=== PATIENT | male | born 1980 | race Caucasian/White ===

== ENCOUNTER 2018-10-06 14:33 | Observation (INO) | payer MEDICAID, SELFPAY ==
[2018-10-06] VITALS (7 sets, daily range): BP systolic 139–153; BP diastolic 71–93; PULSE 100–111; RESP 16–20; TEMP 36.2–36.6; O2SAT 97–98; BMI 29.5; BMI 30.6
--- NOTE | 2018-10-06 15:12 | CT_ITS ---
STUDY: CT BRAIN WITHOUT CONTRAST REASON FOR EXAM: Male, 38 years old. EtOH seizure RADIATION DOSAGE (If Supplied By Facility): CTDIvol = ( 44.12 ) mGy, DLP = ( 812.98 ) mGycm TECHNIQUE: Transaxial CT imaging of the brain was performed without administration of intravenous contrast material. Individualized dose optimization techniques were used for this CT. COMPARISON: No relevant priors. FINDINGS: Normal soft tissue structures. Normal calvarium. There is mild cerebral atrophy with widening of the extra-axial spaces and ventricular dilatation. Normal white matter tracts of the cerebral hemispheres. Normal basal ganglia and thalami. Normal brainstem. Normal cerebellum. There is no intracranial hemorrhage. There are no findings of an acute ischemic infarction. Normal visualized paranasal sinuses. CT/Brain/Head without Contrast IMPRESSION: Mild atrophy, greater than expected for age, no evidence of acute hemorrhage infarct or edema. Electronically Signed: Carolina Murry MD at 16:30 EDT Tel , Service support ,
--- NOTE | 2018-10-06 15:13 | ED.VISSUMM ---
- ER Visit Summary Date of Service: 10/06/18 Chief Complaint: Alcoholism and requesting detox History of Present Illness: The patient is a 38 M hx of alcohol abuse. Patient presents today requesting detox. States is never been through detox before. Typically drinks 6-12 beers a day. His last drink was around 10 PM last night. Mom also states that reportedly recently he has been having seizures when he tries to stop drinking. He also had recent head trauma while intoxicated he and had a head injury against the ground. He was never evaluated for this in the emergency department. He was reportedly seen by an urgent care. Physical Examination: Vital signs are stable afebrile. HEENT exam pupils are reactive light. He is an old healing laceration to his right forehead. There are no hematomas. Nontender. C-spine nontender. Trachea midline. He has normal flexion-extension of his neck. Lungs clear to auscultation bilaterally. Heart regular rhythm rate about 105 no murmur chest wall nontender. Abdomen soft nontender. Pelvic girdle intact. Patient is moving all 4 extremities. He has normal quality control assessor strength. Normal dorsi plantar flexion. Neurologically is awake and alert with no focal motor deficits. Back exam is nontender. Skin is unremarkable. Test Results: CBC shows no acute abnormality with a white count of 7. Hemoglobin 16. BMP except a creatinine of 2.18 with no labs available for comparison. I discussed this with the patient. CT of the brain without contrast shows no acute abnormalities read by myself. Awaiting formal radiology interpretation. Emergency Department Course and Treatment: [facility] is coming down to evaluate the patient for possible inpatient detox. Treatment Plan: [facility] evaluated patient and they are comfortable with admission. I spoke to the hospitalist Dr. Tadeo Francois. He is in the ER evaluating the patient for admission. Disposition: admit Impression: History of alcoholism Requesting inpatient detox Recent head injury This note was generated with [employer] dictation software. It may contain incorrect words, spelling, and punctuation that were not noted in review of the chart prior to signing
--- NOTE | 2018-10-06 15:16 | ED.DCSUM_ITS ---
- ER Visit Summary Date of Service: 10/06/18 Chief Complaint: Alcoholism and requesting detox History of Present Illness: The patient is a 38 M hx of alcohol abuse. Patient presents today requesting detox. States is never been through detox before. Typically drinks 6-12 beers a day. His last drink was around 10 PM last night. Mom also states that reportedly recently he has been having seizures when he tries to stop drinking. He also had recent head trauma while intoxicated he and had a head injury against the ground. He was never evaluated for this in the emergency department. He was reportedly seen by an urgent care. Physical Examination: Vital signs are stable afebrile. HEENT exam pupils are reactive light. He is an old healing laceration to his right forehead. There are no hematomas. Nontender. C-spine nontender. Trachea midline. He has normal flexion-extension of his neck. Lungs clear to auscultation bilaterally. Heart regular rhythm rate about 105 no murmur chest wall nontender. Abdomen soft nontender. Pelvic girdle intact. Patient is moving all 4 extremities. He has normal spring repairer helper hand strength. Normal dorsi plantar flexion. Neurologically is awake and alert with no focal motor deficits. Back exam is nontender. Skin is unremarkable. Test Results: CBC shows no acute abnormality with a white count of 7. Hemoglobin 16. BMP except a creatinine of 2.18 with no labs available for comparison. I discussed this with the patient. CT of the brain without contrast shows no acute abnormalities read by myself. Awaiting formal radiology interpretation. Emergency Department Course and Treatment: [facility] is coming down to evaluate the patient for possible inpatient detox. Treatment Plan: [facility] evaluated patient and they are comfortable with admission. I spoke to the hospitalist Dr. Tadeo Francois. He is in the ER evaluating the patient for admission. Disposition: admit Impression: History of alcoholism Requesting inpatient detox Recent head injury This note was generated with [employer] dictation software. It may contain incorrect words, spelling, and punctuation that were not noted in review of the chart prior to signing
[2018-10-06 15:38] LABS: Absolute Lymphocyte Count 1.45 X10^3/ul (0.83-4.51); Absolute Neutrophil Count 5.6 X10^3/uL (2.0-7.7); Basophil# 0.05 X10^3/uL; Basophil% 0.6 % (0-1); Eosinophil# 0.01 X10^3/uL; Eosinophils% 0.1 % (0-5); Hematocrit 50.4 % (40-54); Hemoglobin 16.6 g/dl (13.0-16.5); Lymphocyte # 1.45 X10^3/ul (4.0); Lymphocyte % 18.3 % (19-41); Mean Corp Hgb Conc 32.9 g/gl (32-36); Mean Corpuscular Hgb 33.4 pg (27.0-32.0); Mean Corpuscular Volume 101.4 fL (80-94); Mean Platelet Vol. 10.7 fl (6.2-12.0); Monocyte# 0.83 X10^3/uL; Monocyte% 10.5 % (0-10); Neutrophil # 5.57 X10^3/uL (2.7-7.7); Neutrophil % 70.4 % (47-70); Platelet Count 170 K/mm3 (150-450); RBC Distribution Width CV 14.2 % (11.6-14.6); RBC Distribution Width SD 52.3 fl (35.1-43.9); Red Blood Count 4.97 M/mm3 (4.6-6.2); White Blood Count 7.9 K/mm3 (4.4-11.0)
[2018-10-06 15:49] LABS: POSITIVE COUNT NO; POSITIVE DIFFERENTIAL NO; POSITIVE MORPHOLOGY NO
[2018-10-06 15:54] LABS: Anion Gap 7 (5-15); BUN 13 mg/dL (7-18); Calcium,Total 9.7 mg/dL (8.5-10.1); Chloride 106 mmol/L (98-107); Creatinine, Serum 2.18 mg/dL (0.70-1.30); EST Glomerular Filtration Rate 36 mL/min (>60); Est Glom Filt Rate - Afr Amer 44 mL/min (>60); Estimated Creatinine Clearance 46.39 ml/min; Glucose 151 mg/dL (74-106); Sodium Level 138 mmol/L (136-145)
--- NOTE | 2018-10-06 16:11 | NURSING ---
FUENTES, [facility], WAS IN ROOM
--- NOTE | 2018-10-06 16:32 | NURSING ---
MED SURG JACKIE ALCOHOLISM, WITHDRAWAL REQUESTING DETOX
--- NOTE | 2018-10-06 16:57 | PCM.HP.STD ---
Problem List (1) Alcohol withdrawal Status: Acute Qualifiers: Complication of substance-induced condition: uncomplicated Qualified Code(s): F10.230 - Alcohol dependence with withdrawal, uncomplicated History of Present Illness Date of Admission: 10/06/18 Chief Complaint: tremors. nausea The patient is a 38 year old M who drinks 6-10 beers per day for the past 19 years. Last drink was around 10 PM last night. Since then, he has been having tremors, diaphoresis, nausea. Requesting help with his alcoholism. Patient expressing desire to quit to be with his family. Patient had an intake CIWA 4 of 20. I calculated 15. Patient will be admitted for medical stabilization protocol with lorazepam. [] Past Medical History Allergies No Known Allergies Allergy (Verified 10/06/18 14:39) Home Medications: Ambulatory Orders Medication Instructions Recorded NK 10/06/18 Smoking Status: Heavy Smoker (>10/day) Tobacco Use: Cigarettes Alcohol: Heavy Drugs: None - *Family History Paternal Family History: Family History (Last Updated 10/06/18 @ 16:59 by Tadeo Francois DO) Other Alcoholism History Items: - Review of Systems Constitutional: Reports: Chills. Denies: Anorexia, Fever, Night Sweats, Malaise, Weakness Eyes: Denies: Blurred vision, Double vision HEENT: Denies: Head Aches, Sinus Congestion, Sinus Drainage Cardiovascular: Denies: Chest Pain, Palpitations Respiratory: Denies: Cough, Shortness of breath at rest, Sputum production Gastrointestinal: Reports: Nausea. Denies: Vomiting Genitourinary: Denies: Dysuria Musculoskeletal: Denies: Joint Pain, Joint Tenderness Skin: Denies: Rash, Wounds Neurological: Reports: - - Paresthesias in his feet. Denies: Blurred vision, Double vision Psychiatric: Reports: Anxiety. Denies: Homicidal Ideations, Suicidal Ideations Endocrine: Denies: Change in Body Habitus, Heat/ Cold Intolerance Hematologic/ Lymphatic: Denies: Easy Bruising, Easy Bleeding, Hx of blood clot Comment: A 10 point review of systems were negative except as mentioned in the history of present illness and the other review of systems. VTE Information - Inpt Only VTE Present on Admission: No VTE Mechan Device Prophylaxis: None VTE Pharm Prophylaxis ordered?: No Patient Problems: Active and Suspected Problems Alcohol withdrawal (Acute) - Physical Exam General: Alert, Cooperative, No apparent distress, Well developed, Well nourished, - - Slightly diaphoretic. Slight tremulousness. HEENT: Atraumatic, PERRLA, EOMI, Normocephalic, - - No scleral icterus Oral: Moist Mucosa, No Gingival or Mucosal Lesions/ Ulcerations Neck: No Nodes, Thyroid Normal Size and Texture Lungs: Clear to auscultation, Normal air movement, No rhonchi, No wheeze Cardiovascular: Regular rate, Regular Rhythm, Normal S1, Normal S2, No murmurs Abdomen: Bowel Sounds Present, Soft, Non Tender, Non-Distended, No Hepato-splenomegaly Extremities: No edema, No Calf Tenderness Skin: No rashes, No breakdown Musculoskeletal: No Tenderness to Palpation of Joints or Extremities, No Muscle Wasting Neurological: Neuro grossly intact, Muscle tone normal Psych/Mental Status: Appropriate, Anxious, - - Some delayed responses to questions. Vital Signs Temp Pulse Resp BP Pulse Ox 36.5 C L 105 H 16 139/78 H 98 10/06/18 14:34 10/06/18 14:44 10/06/18 14:44 10/06/18 14:44 10/06/18 14:44 Oxygen Delivery Method Room Air Weight: 90.718 kg Body Mass Index (BMI) 29.5 Laboratory Tests Past 24 Hrs 10/06/18 10/06/18 15:28 15:28 WBC 7.9 RBC 4.97 Hgb 16.6 H Hct 50.4 MCV 101.4 H MCH 33.4 H MCHC 32.9 RDW 14.2 RDW Differential 52.3 H Plt Count 170 MPV 10.7 Immature Gran % (Auto) 0.100 Neut % (Auto) 70.4 H Lymph % (Auto) 18.3 L [place] % (Auto) 10.5 H Eos % (Auto) 0.1 Baso % (Auto) 0.6 Absolute Neuts (auto) 5.6 Absolute Lymphs (auto) 1.45 Total Counted Not Reportable Sodium 138 Potassium 4.0 Chloride 106 Carbon Dioxide 25.0 Anion Gap 7 BUN 13 Creatinine 2.18 H Estim Creat Clear Calc 46.39 Est GFR (MDRD) Af Amer 44 L Est GFR (MDRD) Non-Af 36 L BUN/Creatinine Ratio 6.0 L Glucose 151 H Calcium 9.7 Assessment/Plan All Active Problems Alcohol withdrawal (Acute) 1. Acute alcohol withdrawal Calculated CIWA by myself of 15. Patient will be initiated on lorazepam taper. Patient also have a medication to help with other somatic complaints. Patient states that this is his first time quitting alcohol. I did implore the patient that this is a lifelong mcgill and purpose of this hospitalization was get over the acute alcohol withdrawal and then afterwards to be initiated in program with [facility] as outpatient. Patient states that he has seizures but patient seems like more reflecting his tremulousness from the rather than actual seizures. Verified that patient is now awake incontinent of urine which he said he is not. Therefore I do not feel the patient has had alcohol withdrawal seizures. 2. DVT prophylaxis: Patient is low risk. DVT prophylaxis not indicated. Code Visit Inpatient E&M: 35899 Init Hosp L3
--- NOTE | 2018-10-06 17:03 | HP.PCM_ITS ---
Problem List (1) Alcohol withdrawal Status: Acute Qualifiers: Complication of substance-induced condition: uncomplicated Qualified Code(s): F10.230 - Alcohol dependence with withdrawal, uncomplicated History of Present Illness Date of Admission: 10/06/18 Chief Complaint: tremors. nausea The patient is a 38 year old M who drinks 6-10 beers per day for the past 19 years. Last drink was around 10 PM last night. Since then, he has been having tremors, diaphoresis, nausea. Requesting help with his alcoholism. Patient expressing desire to quit to be with his family. Patient had an intake CIWA 4 of 20. I calculated 15. Patient will be admitted for medical stabilization protocol with lorazepam. [] Past Medical History Allergies No Known Allergies Allergy (Verified 10/06/18 14:39) Home Medications: Ambulatory Orders Medication Instructions Recorded NK 10/06/18 Smoking Status: Heavy Smoker (>10/day) Tobacco Use: Cigarettes Alcohol: Heavy Drugs: None - *Family History Paternal Family History: Family History (Last Updated 10/06/18 @ 16:59 by Tadeo Francois DO) Other Alcoholism History Items: - Review of Systems Constitutional: Reports: Chills. Denies: Anorexia, Fever, Night Sweats, Malaise, Weakness Eyes: Denies: Blurred vision, Double vision HEENT: Denies: Head Aches, Sinus Congestion, Sinus Drainage Cardiovascular: Denies: Chest Pain, Palpitations Respiratory: Denies: Cough, Shortness of breath at rest, Sputum production Gastrointestinal: Reports: Nausea. Denies: Vomiting Genitourinary: Denies: Dysuria Musculoskeletal: Denies: Joint Pain, Joint Tenderness Skin: Denies: Rash, Wounds Neurological: Reports: - - Paresthesias in his feet. Denies: Blurred vision, Double vision Psychiatric: Reports: Anxiety. Denies: Homicidal Ideations, Suicidal Ideations Endocrine: Denies: Change in Body Habitus, Heat/ Cold Intolerance Hematologic/ Lymphatic: Denies: Easy Bruising, Easy Bleeding, Hx of blood clot Comment: A 10 point review of systems were negative except as mentioned in the history of present illness and the other review of systems. VTE Information - Inpt Only VTE Present on Admission: No VTE Mechan Device Prophylaxis: None VTE Pharm Prophylaxis ordered?: No Patient Problems: Active and Suspected Problems Alcohol withdrawal (Acute) - Physical Exam General: Alert, Cooperative, No apparent distress, Well developed, Well nourished, - - Slightly diaphoretic. Slight tremulousness. HEENT: Atraumatic, PERRLA, EOMI, Normocephalic, - - No scleral icterus Oral: Moist Mucosa, No Gingival or Mucosal Lesions/ Ulcerations Neck: No Nodes, Thyroid Normal Size and Texture Lungs: Clear to auscultation, Normal air movement, No rhonchi, No wheeze Cardiovascular: Regular rate, Regular Rhythm, Normal S1, Normal S2, No murmurs Abdomen: Bowel Sounds Present, Soft, Non Tender, Non-Distended, No Hepato- splenomegaly Extremities: No edema, No Calf Tenderness Skin: No rashes, No breakdown Musculoskeletal: No Tenderness to Palpation of Joints or Extremities, No Muscle Wasting Neurological: Neuro grossly intact, Muscle tone normal Psych/Mental Status: Appropriate, Anxious, - - Some delayed responses to questions. Vital Signs Temp Pulse Resp BP Pulse Ox 36.5 C L 105 H 16 139/78 H 98 10/06/18 14:34 10/06/18 14:44 10/06/18 14:44 10/06/18 14:44 10/06/18 14:44 Oxygen Delivery Method Room Air Weight: 90.718 kg Body Mass Index (BMI) 29.5 Laboratory Tests Past 24 Hrs 10/06/18 10/06/18 15:28 15:28 WBC 7.9 RBC 4.97 Hgb 16.6 H Hct 50.4 MCV 101.4 H MCH 33.4 H MCHC 32.9 RDW 14.2 RDW Differential 52.3 H Plt Count 170 MPV 10.7 Immature Gran % (Auto) 0.100 Neut % (Auto) 70.4 H Lymph % (Auto) 18.3 L [place] % (Auto) 10.5 H Eos % (Auto) 0.1 Baso % (Auto) 0.6 Absolute Neuts (auto) 5.6 Absolute Lymphs (auto) 1.45 Total Counted Not Reportable Sodium 138 Potassium 4.0 Chloride 106 Carbon Dioxide 25.0 Anion Gap 7 BUN 13 Creatinine 2.18 H Estim Creat Clear Calc 46.39 Est GFR (MDRD) Af Amer 44 L Est GFR (MDRD) Non-Af 36 L BUN/Creatinine Ratio 6.0 L Glucose 151 H Calcium 9.7 Assessment/Plan All Active Problems Alcohol withdrawal (Acute) 1. Acute alcohol withdrawal * Calculated CIWA by myself of 15. * Patient will be initiated on lorazepam taper. Patient also have a medication to help with other somatic complaints. * Patient states that this is his first time quitting alcohol. I did implore the patient that this is a lifelong mcgill and purpose of this hospitalization was get over the acute alcohol withdrawal and then afterwards to be initiated in program with [facility] as outpatient. * Patient states that he has seizures but patient seems like more reflecting his tremulousness from the rather than actual seizures. Verified that patient is now awake incontinent of urine which he said he is not. Therefore I do not feel the patient has had alcohol withdrawal seizures. 2. DVT prophylaxis: Patient is low risk. DVT prophylaxis not indicated. Code Visit Inpatient E&M: 86308 Init Hosp L3
[2018-10-06] MEDS: Ondansetron ODT 4 MG Tablet PO (18:27)
[2018-10-06] MEDS: Folic Acid 1 MG Tablet PO (18:27)
[2018-10-06] MEDS: Methocarbamol 750 MG Tablet PO (18:27)
[2018-10-06] MEDS: LORazepam 1 MG Tablet PO ×2 (18:27→22:28)
[2018-10-06] MEDS: Lactated Ringers 1,000 ML 125 ML IV (18:27)
[2018-10-06] MEDS: Dicyclomine 10 MG Capsule 20 MG PO (18:27)
[2018-10-06] MEDS: Multivitamins,Therapeutic Tablet 1 TABLET PO (18:29)
[2018-10-06] MEDS: Thiamine Hydrochloride 100 MG Tablet PO (18:29)
[2018-10-06] MEDS: traZODone 50 MG Tablet PO (22:28)
[2018-10-06 22:55] LABS: Amphetamine Urine VISTA NEGATIVE (<1000 ng/mL); Barbiturate Urine VISTA NEGATIVE (< 200 ng/mL); Benzodiazepine Urine VISTA NEGATIVE (< 200 ng/mL); Cocaine Urine VISTA NEGATIVE (< 300 ng/mL); Ecstacy Urine VISTA NEGATIVE (< 500 ng/mL); Methadone Urine VISTA NEGATIVE (< 300 ng/mL); PCP Urine VISTA NEGATIVE (< 25 ng/mL); THC Urine VISTA NEGATIVE (< 50 ng/mL); Vista UDS pH Range 7
[2018-10-07] VITALS (8 sets, daily range): BP systolic 123–165; BP diastolic 73–112; PULSE 84–101; RESP 16–20; TEMP 36.3–36.8; O2SAT 97–100
[2018-10-07] MEDS: Ibuprofen 600 MG Tablet PO (02:34)
[2018-10-07] MEDS: LORazepam 1 MG Tablet PO ×5 (02:34→21:15)
[2018-10-07] MEDS: Ondansetron ODT 4 MG Tablet PO ×3 (02:34→18:33)
[2018-10-07] MEDS: cloNIDine HCl 0.2 MG Tablet PO (03:23)
--- NOTE | 2018-10-07 09:02 | NURSING ---
MOTHER OF PT CALLED TO INFORM CASE MANAGEMENT THAT PT HAS A COURT DATE TODAY AND NEEDED PAPER WORK SENT TO [facility] [address]. HEADER BOSS BRITTANI NOTIFIED AND INFORMED OF COURT DATE. FAX NUMBER FOR [facility] [phone]
--- NOTE | 2018-10-07 09:20 | CASEMGMT ---
Social Work Note Charge Nurse updated this worker that pt's mother called in stating pt has court date today and the court needs documents showing he was admitted to [facility]. Pt is apart of [facility] program. JO met with pt, introduced self and role at [facility]. JO asked pt about documents for court. Pt states that he is unsure of documents and gave this worker permission to call his mom to determine documents that need to be sent. JO placed a call to pt's mother Jacquelyn. Jacquelyn states that the courts need a letter stating pt was admitted to [facility] on how long pt will be at [facility]. JO updated charge nurse of this who will fax letter to [address]. Nancy Dietrich ADMINISTRATIVE DIETITIAN, ELECTRICIAN MASTER
--- NOTE | 2018-10-07 09:21 | NURSING ---
FAXED WORK/SCHOOL EXCUSE TO [facility] [employer].
[2018-10-07] MEDS: Multivitamins,Therapeutic Tablet 1 TABLET PO (10:33)
[2018-10-07] MEDS: Folic Acid 1 MG Tablet PO (10:33)
[2018-10-07] MEDS: Methocarbamol 750 MG Tablet PO ×2 (10:52→18:33)
[2018-10-07] MEDS: Thiamine Hydrochloride 100 MG Tablet PO (14:47)
--- NOTE | 2018-10-07 15:35 | CASEMGMT ---
Social Work Note SW attempted to see pt in regards to consult that was placed for social service assistant (Pt lives in [facility] with no heat and pt's mother is terminally ill). PT soundly sleeping and didn't wake up when this worker entered room. SW to check in with pt tomorrow. Nancy Dietrich SUPERVISOR AREA, LUBRICATING ENGINEER
--- NOTE | 2018-10-07 16:14 | [facility] ---
Patient completed pre-screen over the phone with [facility] in [place], [place]. [facility] sent over pertinent patient information per facility request. Facility to call and complete day of discharge phone screen with patient with tentative D/C of 10/08/2018. Agency to provide transportation. Agency contact [facility] [phone].
[2018-10-07] MEDS: hydrOXYzine PAM 25 MG Capsule 50 MG PO (18:33)
[2018-10-07] MEDS: Dicyclomine 10 MG Capsule 20 MG PO (18:33)
--- NOTE | 2018-10-07 18:53 | PN_ITS ---
Patient Problems: Active and Suspected Problems Alcohol withdrawal (Acute) Subjective: Patient is a 38-year-old male with a past medical history of tobacco dependence, alcoholism and an unspecified mental health disorder. The [facility] rep related to me that he was in a psychiatric facility for several months. The pt denied any hx of psychiatric disease to me. He told me this is his first time in detox although he has been drinking since he was a teenager. There is a family history of alcoholism and the father side of the family. He tells me he has had DTs in the past and alcohol withdrawal seizures and tells me he had a seizure yesterday but did not lose consciousness he was just shaky. 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 Apparently he lives in a trailer and his mother said the farm is off the table for now. He was very sleepy this AM and I had to shake him to get him awake. All events of the past 24 hours have been reviewed. He is afebrile. Heart rate and blood pressures are starting to increase. The most recent blood pressure is 151/99 with a heart rate of 93. He is 100% saturated on room air currently. All lab was personally reviewed. Hemoglobin was 16.6 at admission with an MCV of 101.4. Platelets are within normal limits and the white blood cell count was normal. BMP is remarkable for a creatinine of 2.18 and a BUN of 13. Random glucose at admission was 151. Urine drug screen was negative. Brain CT at admission showed atrophy greater than expected for age with no evidence of acute infarct, edema or hemorrhage. His mother told the ED physician that he has not been taking care of himself and was apparently living in a trailer with no heat. He denies any hx of Renal failure He has never been in [facility] in the past and we have no baseline lab available - Physical Exam General: Well developed, Well nourished, - - drowsy HEENT: Atraumatic, PERRLA, Normocephalic Oral: Dry Mucosa, - - has poor dental hygiene, + halitosis, he appears unkempt and he smells bad. Told me he did not want to get washed up Neck: Supple, No Nodes, Trachea Midline Lungs: Clear to auscultation Cardiovascular: Regular rate, Regular Rhythm, Normal S1, Normal S2, No murmurs, No rub noted, No Gallop Abdomen: Bowel Sounds Present, Soft, Non Tender, Non-Distended Extremities: No clubbing, No cyanosis, No edema Skin: No rashes, No breakdown Neurological: Cranial nerves II-XII grossly intact, Neuro grossly intact, - - Mild tremoring of his hands, negative asterixis Psych/Mental Status: Flat Affect Vital Signs Temp Pulse Resp BP Pulse Ox 97.6 F L 93 16 151/99 H 100 10/07/18 18:00 10/07/18 18:00 10/07/18 18:00 10/07/18 18:00 10/07/18 18:00 Oxygen Delivery Method Room Air Weight: 207 lb 3.752 oz Body Mass Index (BMI) 30.6 Intake and Output for Last 24 Hours 10/05/18 10/06/18 10/07/18 23:59 23:59 23:59 Intake Total 1394 / 1394 Output Total 200 / 200 Balance -200 / -200 1394 / 1394 Laboratory Tests Past 24 Hrs 10/06/18 22:15 Urine Opiates Screen NEGATIVE Urine Methadone Screen NEGATIVE Ur Barbiturates Screen NEGATIVE Ur Phencyclidine Scrn NEGATIVE Ur Amphetamines Screen NEGATIVE U Methamphetamin-MDMA NEGATIVE U Benzodiazepines Scrn NEGATIVE Urine Cocaine Screen NEGATIVE U Cannabinoids Screen NEGATIVE Ur Drug Screen Comment Medical Necessity - Tobacco Use Smoking Status: Heavy Smoker (>10/day) Tobacco Use: Cigarettes Assessment/Plan All Active Problems Alcohol withdrawal (Acute) Impressions 1. acute alcohol withdrawal with possible hx of alcohol withdrawal bruno and DT's......I am not sure the hx he is giving me is reliable 2. renal failure - no baseline available 3. hx of psychiatric illness - spent many months in a psych hospital per Tracy from [facility]. Pt denies. He denies hallucinations. 4. hyperglycemia with no hx of DM 5. Alcoholism - personal and FH 6. poor dental health 7. dehydration with hemoconcentration 8. macrocytosis - likely due to chronic alcohol use and fatty liver US of the kidneys and the bladder Post void residual CMP, CBC, mag, phos, HGBA1C, TSH and ammonia in the AM. continue the [facility] program for alcohol withdrawal - Ativan taper Hydrate tonight Try and get more information from the mother about the admission to the psych facility and the diagnosis Recommend he see a dentist in the future Told him I wanted him to get washed up and brush his teeth today and he was agreeable Continue thiamine and folic acid Nicotine patch provided Smoking cessation counseling given I spent a total of 45 minutes seeing the pt and counselling and discussing plan for care with [facility] and coordinating care Code Visit Inpatient E&M: 78675 Subs Hosp L3
--- NOTE | 2018-10-07 18:54 | US_ITS ---
STUDY: RENAL ULTRASOUND - COMPLETE REASON FOR EXAM: Male, 38 years old. Abnormal renal function. TECHNIQUE: Ultrasound evaluation of the kidneys was performed with real-time and static hunt-scale imaging. COMPARISON: None. FINDINGS: RIGHT KIDNEY: Normal location of the right kidney, which is normal in size. The right kidney measures 13.5 cm x 4.3 cm x 4.2 cm. There is a normal cortex of the right kidney. The renal cortex measures 1.3 cm. There is no right renal mass or cyst. There are no right renal calculi. There is no right hydronephrosis. DISTAL RIGHT URETER: There is non-visualization of the distal right ureter. There is no demonstrated right ureterovesical junction calculus. There is no demonstrated right ureteral jet. LEFT KIDNEY: Normal location of the left kidney, which is normal in size. The left kidney measures 14.1 cm x 5.2 cm x 5.9 cm. There is a normal cortex of the left kidney. The renal cortex measures 2.0 cm. There is no left renal mass or cyst. There are no left renal calculi. There is no left hydronephrosis. DISTAL LEFT URETER: There is non-visualization of the distal left ureter. There is no demonstrated left ureterovesical junction calculus. There is no demonstrated left ureteral jet. BLADDER: The distended urinary bladder has a volume of 46.5 ml. There is a normal wall thickness of the distended urinary bladder. There is no demonstrated mass within the urinary bladder. There are no demonstrated bladder calculi. US/Kidney and Bladder IMPRESSION: Normal ultrasound of the kidneys and urinary bladder. Electronically Signed: Saleem Woo, at 9:42 EDT , Service support ,
[2018-10-07] MEDS: Lactated Ringers 1,000 ML 999 ML IV (21:14)
[2018-10-07] MEDS: traZODone 50 MG Tablet PO (21:16)
[2018-10-07] MEDS: Acetaminophen 500 MG Tablet PO (21:35)
[2018-10-07] MEDS: Lactated Ringers 1,000 ML 125 ML IV (22:20)
[2018-10-08] VITALS (8 sets, daily range): BP systolic 150–190; BP diastolic 79–115; PULSE 65–93; RESP 16–18; TEMP 36.5–36.8; O2SAT 92–97
[2018-10-08] MEDS: Acetaminophen 500 MG Tablet PO (02:07)
[2018-10-08] MEDS: LORazepam 1 MG Tablet PO ×4 (02:08→21:41)
[2018-10-08] MEDS: Ondansetron ODT 4 MG Tablet PO (02:09)
[2018-10-08] MEDS: hydroCHLOROthiazide 12.5mg 12.5 MG PO ×2 (03:12→22:15)
[2018-10-08] MEDS: Lisinopril 20 MG Tablet PO ×2 (03:12→08:33)
[2018-10-08] MEDS: Lactated Ringers 1,000 ML 125 ML IV ×3 (06:26→22:17)
[2018-10-08 06:29] LABS: Hematocrit 41.4 % (40-54); Hemoglobin 14.2 g/dl (13.0-16.5); Mean Corp Hgb Conc 34.3 g/gl (32-36); Mean Corpuscular Hgb 34.3 pg (27.0-32.0); Mean Platelet Vol. 10.9 fl (6.2-12.0); Platelet Count 99 K/mm3 (150-450); RBC Distribution Width CV 13.3 % (11.6-14.6); RBC Distribution Width SD 48.9 fl (35.1-43.9); Red Blood Count 4.14 M/mm3 (4.6-6.2); White Blood Count 6.4 K/mm3 (4.4-11.0)
[2018-10-08 06:37] LABS: Scan Indicated on CBC? Y/N NO
[2018-10-08 06:57] LABS: Albumin, Serum 3.1 g/dL (3.2-5.0); BUN 11 mg/dL (7-18); BUN/Creat Ratio 6.8 RATIO (10-20); Creatinine, Serum 1.61 mg/dL (0.70-1.30); EST Glomerular Filtration Rate 52 mL/min (>60); Est Glom Filt Rate - Afr Amer 62 mL/min (>60); Estimated Creatinine Clearance 62.82 ml/min; Glucose 91 mg/dL (74-106); Protein, Total 7.1 g/dL (6.4-8.2)
[2018-10-08 06:58] LABS: ALB/GLOB Ratio 0.8 RATIO (0.9-2.4); AST(SGOT) 83 U/L (15-37); Alanine Aminotransfer ALT/SGPT 82 U/L (16-61); Alkaline Phosphatase 103 U/L (45-117); Anion Gap 7 (5-15); Calcium,Total 9.3 mg/dL (8.5-10.1); Chloride 106 mmol/L (98-107); Cholesterol 177 mg/dL (200); High Density Lipoprotein 66 mg/dL; Magnesium 2.2 mg/dL (1.6-2.6); Potassium 3.8 mmol/L (3.5-5.1); Sodium Level 140 mmol/L (136-145); Thyroid Stim Hormone (TSH) 3.88 uIU/mL (0.358-3.74); Triglycerides 170 mg/dL; Very Low Density Lipoprotein 34 mg/dL (5-40)
[2018-10-08 07:09] LABS: Hemoglobin A1c 5.8 % (4.2-6.3)
[2018-10-08] MEDS: Methocarbamol 750 MG Tablet PO (08:32)
[2018-10-08] MEDS: Multivitamins,Therapeutic Tablet 1 TABLET PO (08:33)
[2018-10-08] MEDS: Thiamine Hydrochloride 100 MG Tablet PO (08:33)
[2018-10-08] MEDS: Folic Acid 1 MG Tablet PO (08:33)
--- NOTE | 2018-10-08 10:33 | NEWVISION ---
Patient spoke to [facility] this morning. [facility] will call patient tomorrow to do final phone assessment in order to admit him on 10.09.18. [facility] will transport from the hospital to their facility per counter sales representative, james.
[2018-10-08] MEDS: Ibuprofen 600 MG Tablet PO (13:33)
--- NOTE | 2018-10-08 13:43 | CASEMGMT ---
Social Work Note JO reviewed [place] notes and pt is to go to [facility] tomorrow. SW met with pt in regards to consult that was placed regarding no heat in camper, mom being terminally ill and depression. Pt confirms that he is going to [facility] tomorrow and feels supported. Pt states that his mom is good support for him. Pt didn't mention to this worker if his mom is sick or not and states again that his mom is good support for him. Pt confirms that he was living in a camper but not currently. Pt states he still has the camper but that he had to move the camper. Pt states that right now the camper doesn't have any heat but states that he plans on getting heat back in it. Pt denied any need for additional resources and denied concerns right now. Pt was very short with this worker during conversation. Nancy Dietrich [employer], [employer]IM[employer]DER
--- NOTE | 2018-10-08 18:44 | PCM.PROGNOTE ---
Patient Problems: Active and Suspected Problems Alcohol withdrawal (Acute) Subjective: All events of the past 24 H have been reviewed. BP's have been increased, no significant tachycardia He denies any sx other than tremors of his hands. No nausea, emesis, abdominal pain or sweating. Did not sleep well last night. Denies aver being on any psych meds. Continues to deny any hx of psychiatric illness or admission to a psych hospital. All the lab was reviewed. Creat improved with hydration and the hemoconcentration has improved as well. Platelets are decreased at 99,000 today......liekly due to ETOH. Transaminases are mildy increased. Tox screen is negative. US of the kidneys and the bladder are normal - Physical Exam General: Alert, Oriented x3, Cooperative, No apparent distress - lying in bed watching TV HEENT: Atraumatic, PERRLA, Normocephalic Oral: Moist Mucosa Lungs: Clear to auscultation Cardiovascular: Regular rate, Regular Rhythm, Normal S1, Normal S2, No murmurs, No Gallop Abdomen: Bowel Sounds Present, Soft, Non Tender, Non-Distended Extremities: No clubbing, No cyanosis, No edema Skin: No rashes, No breakdown Neurological: Cranial nerves II-XII grossly intact, Neuro grossly intact, - - mild tremors of the hands with no asterixis Psych/Mental Status: Normal Affect, Appropriate Vital Signs Temp Pulse Resp BP Pulse Ox 98.3 F 68 16 159/79 H 97 10/08/18 13:29 10/08/18 13:29 10/08/18 13:29 10/08/18 13:29 10/08/18 01:55 Oxygen Delivery Method Room Air Weight: 207 lb 3.752 oz Body Mass Index (BMI) 30.6 Intake and Output for Last 24 Hours 10/06/18 10/07/18 10/08/18 23:59 23:59 23:59 Intake Total 1394 / 1394 4487 / 4487 Output Total 200 / 200 1125 / 1125 Balance -200 / -200 1394 / 1394 3362 / 3362 Laboratory Tests Past 24 Hrs 10/08/18 10/08/18 10/08/18 06:15 06:15 06:15 WBC 6.4 RBC 4.14 L Hgb 14.2 Hct 41.4 MCV 100.0 H MCH 34.3 H MCHC 34.3 RDW 13.3 RDW Differential 48.9 H Plt Count 99 L MPV 10.9 Sodium 140 Potassium 3.8 Chloride 106 Carbon Dioxide 27.0 Anion Gap 7 BUN 11 Creatinine 1.61 H Estim Creat Clear Calc 62.82 Est GFR (MDRD) Af Amer 62 Est GFR (MDRD) Non-Af 52 L BUN/Creatinine Ratio 6.8 L Glucose 91 Hemoglobin A1c 5.8 Calcium 9.3 Phosphorus 3.0 Magnesium 2.2 Total Bilirubin 0.60 AST 83 H ALT 82 H Alkaline Phosphatase 103 Ammonia Total Protein 7.1 Albumin 3.1 L Globulin 4.0 Albumin/Globulin Ratio 0.8 L Triglycerides 170 Cholesterol 177 LDL Cholesterol 77 VLDL Cholesterol 34 HDL Cholesterol 66 TSH 3.88 H 10/08/18 06:15 WBC RBC Hgb Hct MCV MCH MCHC RDW RDW Differential Plt Count MPV Sodium Potassium Chloride Carbon Dioxide Anion Gap BUN Creatinine Estim Creat Clear Calc Est GFR (MDRD) Af Amer Est GFR (MDRD) Non-Af BUN/Creatinine Ratio Glucose Hemoglobin A1c Calcium Phosphorus Magnesium Total Bilirubin AST ALT Alkaline Phosphatase Ammonia 34.0 H Total Protein Albumin Globulin Albumin/Globulin Ratio Triglycerides Cholesterol LDL Cholesterol VLDL Cholesterol HDL Cholesterol TSH Medical Necessity - Tobacco Use Smoking Status: Heavy Smoker (>10/day) Tobacco Use: Cigarettes Assessment/Plan All Active Problems Alcohol withdrawal (Acute) Impressions 1. acute alcohol withdrawal with possible hx of alcohol withdrawal sezures and DT's......I am not sure the hx he is giving me is reliable 2. renal failure - no baseline available 3. hx of psychiatric illness - spent many months in a psych hospital per Tracy from [place] [facility]. Pt denies. He denies hallucinations. 4. hyperglycemia with no hx of DM 5. Alcoholism - personal and FH 6. poor dental health 7. dehydration with hemoconcentration 8. macrocytosis - likely due to chronic alcohol use and fatty liver Continue the Librium taper and the [facility] protocol for acute alcohol withdrawal. Will be going to an inpt facility, [facility] for dual diagnosis at [place]. [place] will pick him up and transport to their facility. The pt is agreeable to transfer tomorrow. [place] 10/09/18
--- NOTE | 2018-10-08 18:50 | PN_ITS ---
Patient Problems: Active and Suspected Problems Alcohol withdrawal (Acute) Subjective: All events of the past 24 H have been reviewed. BP's have been increased, no significant tachycardia He denies any sx other than tremors of his hands. No nausea, emesis, abdominal pain or sweating. Did not sleep well last night. Denies aver being on any psych meds. Continues to deny any hx of psychiatric illness or admission to a psych hospital. All the lab was reviewed. Creat improved with hydration and the hemoconcentration has improved as well. Platelets are decreased at 99,000 today......liekly due to ETOH. Transaminases are mildy increased. Tox screen is negative. US of the kidneys and the bladder are normal - Physical Exam General: Alert, Oriented x3, Cooperative, No apparent distress - lying in bed watching TV HEENT: Atraumatic, PERRLA, Normocephalic Oral: Moist Mucosa Lungs: Clear to auscultation Cardiovascular: Regular rate, Regular Rhythm, Normal S1, Normal S2, No murmurs, No Gallop Abdomen: Bowel Sounds Present, Soft, Non Tender, Non-Distended Extremities: No clubbing, No cyanosis, No edema Skin: No rashes, No breakdown Neurological: Cranial nerves II-XII grossly intact, Neuro grossly intact, - - mild tremors of the hands with no asterixis Psych/Mental Status: Normal Affect, Appropriate Vital Signs Temp Pulse Resp BP Pulse Ox 98.3 F 68 16 159/79 H 97 10/08/18 13:29 10/08/18 13:29 10/08/18 13:29 10/08/18 13:29 10/08/18 01:55 Oxygen Delivery Method Room Air Weight: 207 lb 3.752 oz Body Mass Index (BMI) 30.6 Intake and Output for Last 24 Hours 10/06/18 10/07/18 10/08/18 23:59 23:59 23:59 Intake Total 1394 / 1394 4487 / 4487 Output Total 200 / 200 1125 / 1125 Balance -200 / -200 1394 / 1394 3362 / 3362 Laboratory Tests Past 24 Hrs 10/08/18 10/08/18 10/08/18 06:15 06:15 06:15 WBC 6.4 RBC 4.14 L Hgb 14.2 Hct 41.4 MCV 100.0 H MCH 34.3 H MCHC 34.3 RDW 13.3 RDW Differential 48.9 H Plt Count 99 L MPV 10.9 Sodium 140 Potassium 3.8 Chloride 106 Carbon Dioxide 27.0 Anion Gap 7 BUN 11 Creatinine 1.61 H Estim Creat Clear Calc 62.82 Est GFR (MDRD) Af Amer 62 Est GFR (MDRD) Non-Af 52 L BUN/Creatinine Ratio 6.8 L Glucose 91 Hemoglobin A1c 5.8 Calcium 9.3 Phosphorus 3.0 Magnesium 2.2 Total Bilirubin 0.60 AST 83 H ALT 82 H Alkaline Phosphatase 103 Ammonia Total Protein 7.1 Albumin 3.1 L Globulin 4.0 Albumin/Globulin Ratio 0.8 L Triglycerides 170 Cholesterol 177 LDL Cholesterol 77 VLDL Cholesterol 34 HDL Cholesterol 66 TSH 3.88 H 10/08/18 06:15 WBC RBC Hgb Hct MCV MCH MCHC RDW RDW Differential Plt Count MPV Sodium Potassium Chloride Carbon Dioxide Anion Gap BUN Creatinine Estim Creat Clear Calc Est GFR (MDRD) Af Amer Est GFR (MDRD) Non-Af BUN/Creatinine Ratio Glucose Hemoglobin A1c Calcium Phosphorus Magnesium Total Bilirubin AST ALT Alkaline Phosphatase Ammonia 34.0 H Total Protein Albumin Globulin Albumin/Globulin Ratio Triglycerides Cholesterol LDL Cholesterol VLDL Cholesterol HDL Cholesterol TSH Medical Necessity - Tobacco Use Smoking Status: Heavy Smoker (>10/day) Tobacco Use: Cigarettes Assessment/Plan All Active Problems Alcohol withdrawal (Acute) Impressions 1. acute alcohol withdrawal with possible hx of alcohol withdrawal sezures and DT's......I am not sure the hx he is giving me is reliable 2. renal failure - no baseline available 3. hx of psychiatric illness - spent many months in a psych hospital per Tracy from [place]. Pt denies. He denies hallucinations. 4. hyperglycemia with no hx of DM 5. Alcoholism - personal and FH 6. poor dental health 7. dehydration with hemoconcentration 8. macrocytosis - likely due to chronic alcohol use and fatty liver Continue the Librium taper and the [facility] protocol for acute alcohol with drawal. Will be going to an inpt facility, [facility] for dual diagnosis at [place]. [place] will pick him up and transport to their facility. The pt is agreeable to transfer tomorrow. [place] 10/09/18
[2018-10-08] MEDS: traZODone 50 MG Tablet PO (21:41)
[2018-10-09] VITALS (10 sets, daily range): BP systolic 151–189; BP diastolic 90–133; PULSE 66–87; RESP 16–18; TEMP 36.4; O2SAT 99
[2018-10-09] MEDS: Lactated Ringers 1,000 ML 125 ML IV (05:41)
[2018-10-09] MEDS: LORazepam 1 MG Tablet PO ×2 (05:42→14:14)
[2018-10-09] MEDS: Ibuprofen 600 MG Tablet PO (05:46)
[2018-10-09] MEDS: Folic Acid 1 MG Tablet PO (08:51)
[2018-10-09] MEDS: Thiamine Hydrochloride 100 MG Tablet PO (08:52)
[2018-10-09] MEDS: Lisinopril 20 MG Tablet PO (08:52)
[2018-10-09] MEDS: Multivitamins,Therapeutic Tablet 1 TABLET PO (08:52)
[2018-10-09] MEDS: amLODIPine 10 MG Tablet PO (09:52)
--- NOTE | 2018-10-09 11:24 | NURSING ---
Spoke to Erin at [facility] that patient will be discharged to. [facility] facility will have a bed for patient tomorrow if he is not discharged today. Erin, is admission counselor. Please call prior to DC.
[2018-10-09] MEDS: Metoprolol(XL)Succ 25 MG Tablet PO ×2 (11:42→14:56)
--- NOTE | 2018-10-09 14:49 | DCINST_ITS ---
- Discharge Diagnoses Current Active Problems: Current Active and Chronic Problems Alcohol withdrawal (Acute) You will use the following diet at home:: No restrictions Your food should be the consistency of: Regular Your liquids should be the consistency of: Regular/Thin Discharge Activity: Return to Normal Activity Call your doctor if you observe: Fever of 101 or Higher, Shortness of breath, Dizziness, Fainting spells, Swelling in the ankles, Chest pain, Calf discomfort Additional Instructions: 1. You have had very high BP and we have started you on medication to control the BP. there are 2 medications, Metoprolol and Lisinopril, and you will take each once a day. 2. [place] Allergies/Adverse Reactions: Allergies No Known Allergies Allergy (Verified 10/06/18 14:39) Medications to take at Discharge Folic Acid 1 mg PO DAILYCM tablet 10/09/18 Lisinopril [Zestril] 20 mg PO DAILY tablet 10/09/18 Metoprolol(XL)Succ [Toprol Xl (Beta Daron)] 50 mg PO DAILY #1 tablet 10/09/18 Multivitamins,Therapeutic [Multivitamin] 1 tablet PO DAILYCM tablet 10/09/18 Thiamine Hydrochloride [Vitamin B1] 100 mg PO DAILYCM tablet 10/09/18 The following prescriptions were given: Metoprolol(XL)Succ [Toprol Xl (Beta Daron)] 50 mg PO DAILY #1 tablet Primary Care Physician: Care Physician,No Primary [Primary Care Provider] - Test Results: Test results from this visit will be discussed in further detail at your follow- up appointment, if applicable. Proposed Discharge Date: 10/09/18
--- NOTE | 2018-10-09 14:49 | PCM.DC.SUM ---
Discharge Date and Diagnosis - Problem List Patient Problems: Active and Suspected Problems Alcohol withdrawal (Acute) Date of Admission: 10/06/18 Date of Discharge: 10/09/18 - Primary Discharge Diagnosis Active and Suspected Problems Alcohol withdrawal (Acute) Uncontrolled HTN abnormal LFT's thrombocytopenia - likely due to alcohol toxicity on the BM - Secondary Discharge Diagnosis Chronic Problems HTN (hypertension) (Chronic) Alcohol dependence Hospital Course and Treatment Imaging Results: Clinical Impression(s) from Imaging Studies Brain CT 10/06/18 15:12 IMPRESSION: Mild atrophy, greater than expected for age, no evidence of acute hemorrhage infarct or edema. Electronically Signed: Carolina Murry MD at 16:30 EDT Tel , Service support , Renal Ultrasound 10/07/18 18:54 IMPRESSION: Normal ultrasound of the kidneys and urinary bladder. Electronically Signed: Saleem Woo, at 9:42 EDT , Service support , Laboratory Tests 10/08/18 10/08/18 10/08/18 Range/Units 06:15 06:15 06:15 WBC (4.4-11.0) K/mm3 RBC (4.6-6.2) M/mm3 Hgb (13.0-16.5) g/dl Hct (40-54) % MCV (80-94) fL MCH (27.0-32.0) pg MCHC (32-36) g/gl RDW (11.6-14.6) % RDW Differential (35.1-43.9) fl Plt Count (150-450) K/mm3 MPV (6.2-12.0) fl Immature Gran % (Auto) (0.0-0.9) % Neut % (Auto) (47-70) % Lymph % (Auto) (19-41) % [place] % (Auto) (0-10) % Eos % (Auto) (0-5) % Baso % (Auto) (0-1) % Absolute Neuts (auto) (2.0-7.7) X10^3/uL Absolute Lymphs (auto) (0.83-4.51) X10^3/ul Total Counted Sodium 140 (136-145) mmol/L Potassium 3.8 (3.5-5.1) mmol/L Chloride 106 (98-107) mmol/L Carbon Dioxide 27.0 (21.0-32.0) mmol/L Anion Gap 7 (5-15) BUN 11 (7-18) mg/dL Creatinine 1.61 H (0.70-1.30) mg/dL Estim Creat Clear Calc 62.82 ml/min Est GFR (MDRD) Af Amer 62 (>60) mL/min Est GFR (MDRD) Non-Af 52 L (>60) mL/min BUN/Creatinine Ratio 6.8 L (10-20) RATIO Glucose 91 (74-106) mg/dL Hemoglobin A1c 5.8 (4.2-6.3) % Calcium 9.3 (8.5-10.1) mg/dL Phosphorus 3.0 (2.5-4.9) mg/dL Magnesium 2.2 (1.6-2.6) mg/dL Total Bilirubin 0.60 (0.20-1.00) mg/dL AST 83 H (15-37) U/L ALT 82 H (16-61) U/L Alkaline Phosphatase 103 (45-117) U/L Ammonia 34.0 H (11-32) umol/L Total Protein 7.1 (6.4-8.2) g/dL Albumin 3.1 L (3.2-5.0) g/dL Globulin 4.0 (2.2-4.2) g/dL Albumin/Globulin Ratio 0.8 L (0.9-2.4) RATIO Triglycerides 170 ( - 199) mg/dL Cholesterol 177 (200) mg/dL LDL Cholesterol 77 (0-130) mg/dL VLDL Cholesterol 34 (5-40) mg/dL HDL Cholesterol 66 (40 - ) mg/dL TSH 3.88 H (0.358-3.74) uIU/mL Urine Opiates Screen (< 300 ng/mL) Urine Methadone Screen (< 300 ng/mL) Ur Barbiturates Screen (< 200 ng/mL) Ur Phencyclidine Scrn (< 25 ng/mL) Ur Amphetamines Screen (<1000 ng/mL) U Methamphetamin-MDMA (< 500 ng/mL) U Benzodiazepines Scrn (< 200 ng/mL) Urine Cocaine Screen (< 300 ng/mL) U Cannabinoids Screen (< 50 ng/mL) Ur Drug Screen Comment 10/08/18 10/06/18 10/06/18 Range/Units 06:15 22:15 15:28 WBC 6.4 (4.4-11.0) K/mm3 RBC 4.14 L (4.6-6.2) M/mm3 Hgb 14.2 (13.0-16.5) g/dl Hct 41.4 (40-54) % MCV 100.0 H (80-94) fL MCH 34.3 H (27.0-32.0) pg MCHC 34.3 (32-36) g/gl RDW 13.3 (11.6-14.6) % RDW Differential 48.9 H (35.1-43.9) fl Plt Count 99 L (150-450) K/mm3 MPV 10.9 (6.2-12.0) fl Immature Gran % (Auto) (0.0-0.9) % Neut % (Auto) (47-70) % Lymph % (Auto) (19-41) % [place] % (Auto) (0-10) % Eos % (Auto) (0-5) % Baso % (Auto) (0-1) % Absolute Neuts (auto) (2.0-7.7) X10^3/uL Absolute Lymphs (auto) (0.83-4.51) X10^3/ul Total Counted Sodium 138 (136-145) mmol/L Potassium 4.0 (3.5-5.1) mmol/L Chloride 106 (98-107) mmol/L Carbon Dioxide 25.0 (21.0-32.0) mmol/L Anion Gap 7 (5-15) BUN 13 (7-18) mg/dL Creatinine 2.18 H (0.70-1.30) mg/dL Estim Creat Clear Calc 46.39 ml/min Est GFR (MDRD) Af Amer 44 L (>60) mL/min Est GFR (MDRD) Non-Af 36 L (>60) mL/min BUN/Creatinine Ratio 6.0 L (10-20) RATIO Glucose 151 H (74-106) mg/dL Hemoglobin A1c (4.2-6.3) % Calcium 9.7 (8.5-10.1) mg/dL Phosphorus (2.5-4.9) mg/dL Magnesium (1.6-2.6) mg/dL Total Bilirubin (0.20-1.00) mg/dL AST (15-37) U/L ALT (16-61) U/L Alkaline Phosphatase (45-117) U/L Ammonia (11-32) umol/L Total Protein (6.4-8.2) g/dL Albumin (3.2-5.0) g/dL Globulin (2.2-4.2) g/dL Albumin/Globulin Ratio (0.9-2.4) RATIO Triglycerides ( - 199) mg/dL Cholesterol (200) mg/dL LDL Cholesterol (0-130) mg/dL VLDL Cholesterol (5-40) mg/dL HDL Cholesterol (40 - ) mg/dL TSH (0.358-3.74) uIU/mL Urine Opiates Screen NEGATIVE (< 300 ng/mL) Urine Methadone Screen NEGATIVE (< 300 ng/mL) Ur Barbiturates Screen NEGATIVE (< 200 ng/mL) Ur Phencyclidine Scrn NEGATIVE (< 25 ng/mL) Ur Amphetamines Screen NEGATIVE (<1000 ng/mL) U Methamphetamin-MDMA NEGATIVE (< 500 ng/mL) U Benzodiazepines Scrn NEGATIVE (< 200 ng/mL) Urine Cocaine Screen NEGATIVE (< 300 ng/mL) U Cannabinoids Screen NEGATIVE (< 50 ng/mL) Ur Drug Screen Comment 10/06/18 Range/Units 15:28 WBC 7.9 (4.4-11.0) K/mm3 RBC 4.97 (4.6-6.2) M/mm3 Hgb 16.6 H (13.0-16.5) g/dl Hct 50.4 (40-54) % MCV 101.4 H (80-94) fL MCH 33.4 H (27.0-32.0) pg MCHC 32.9 (32-36) g/gl RDW 14.2 (11.6-14.6) % RDW Differential 52.3 H (35.1-43.9) fl Plt Count 170 (150-450) K/mm3 MPV 10.7 (6.2-12.0) fl Immature Gran % (Auto) 0.100 (0.0-0.9) % Neut % (Auto) 70.4 H (47-70) % Lymph % (Auto) 18.3 L (19-41) % [place] % (Auto) 10.5 H (0-10) % Eos % (Auto) 0.1 (0-5) % Baso % (Auto) 0.6 (0-1) % Absolute Neuts (auto) 5.6 (2.0-7.7) X10^3/uL Absolute Lymphs (auto) 1.45 (0.83-4.51) X10^3/ul Total Counted Not Reportable Sodium (136-145) mmol/L Potassium (3.5-5.1) mmol/L Chloride (98-107) mmol/L Carbon Dioxide (21.0-32.0) mmol/L Anion Gap (5-15) BUN (7-18) mg/dL Creatinine (0.70-1.30) mg/dL Estim Creat Clear Calc ml/min Est GFR (MDRD) Af Amer (>60) mL/min Est GFR (MDRD) Non-Af (>60) mL/min BUN/Creatinine Ratio (10-20) RATIO Glucose (74-106) mg/dL Hemoglobin A1c (4.2-6.3) % Calcium (8.5-10.1) mg/dL Phosphorus (2.5-4.9) mg/dL Magnesium (1.6-2.6) mg/dL Total Bilirubin (0.20-1.00) mg/dL AST (15-37) U/L ALT (16-61) U/L Alkaline Phosphatase (45-117) U/L Ammonia (11-32) umol/L Total Protein (6.4-8.2) g/dL Albumin (3.2-5.0) g/dL Globulin (2.2-4.2) g/dL Albumin/Globulin Ratio (0.9-2.4) RATIO Triglycerides ( - 199) mg/dL Cholesterol (200) mg/dL LDL Cholesterol (0-130) mg/dL VLDL Cholesterol (5-40) mg/dL HDL Cholesterol (40 - ) mg/dL TSH (0.358-3.74) uIU/mL Urine Opiates Screen (< 300 ng/mL) Urine Methadone Screen (< 300 ng/mL) Ur Barbiturates Screen (< 200 ng/mL) Ur Phencyclidine Scrn (< 25 ng/mL) Ur Amphetamines Screen (<1000 ng/mL) U Methamphetamin-MDMA (< 500 ng/mL) U Benzodiazepines Scrn (< 200 ng/mL) Urine Cocaine Screen (< 300 ng/mL) U Cannabinoids Screen (< 50 ng/mL) Ur Drug Screen Comment none Operations: None Procedures: None Summary of Care Provided: Patient is a 38-year-old male with a past medical history of tobacco dependence, alcoholism and an unspecified mental health disorder. He presented to [facility] requesting inpatient admission for medical stabilization for acute alcohol withdrawal. At the time of admission he was experiencing tremors, diaphoresis and nausea. The [facility] rep related to me that he was in a psychiatric facility for several months. The pt denied any hx of psychiatric disease to me. He told me this is his first time in detox although he has been drinking since he was a teenager. There is a family history of alcoholism on the father's side of the family. Lab showed a normal white blood cell count of 7.9, increased hemoglobin of 16.6, MCV of 101.4 and platelets of 170,000. Electrolytes were within normal limits but the BUN was 13 with a creatinine of 2.18. A random glucose was 151 and he has no history of diabetes mellitus. Hemoglobin A1c was 5.8. AST and ALT were elevated at 83 and 82 respectively. Total bilirubin and alkaline phosphatase were within normal limits. TSH was less than 4. Urine drug screen was negative. He was admitted to the hospital and the [facility] protocol for acute alcohol withdrawal was initiated. He was started on a chlordiazepoxide taper. He was initially tachycardic but this resolved quickly after the chlordiazepoxide was initiated. He had mild tremors the second day in the hospital but, the detox was otherwise unremarkable. Blood pressures continued to rise throughout his admission and ranged from 23/73 to 189/133. He was started on lisinopril but blood pressures remained markedly elevated. Toprol-XL 50 mg was added with improvement however his blood pressure does remain mildly elevated and it will take a few days to get a steady state with the Lisinopril and Metoprolol because they are both long acting drugs. He was discharged on 10/09/18 and will be picked up and transported to [facility]. PHYSICAL EXAM: GENERAL: alert, oriented X 3, Cooperative, NAD ORAL: moist mucosa, no mucosal lesions NECK: No JVD, supple, trachea midline LUNGS: CTA, symmetric chest expansion HEART: RRR, Normal S1 and S2, no rub, no gallop ABDOMEN: soft, NT, ND, BS present, no guarding with palpation EXTREMITIES: no edema, no cyanosis, no calf tenderness SKIN: No rashes, no breakdown NEUROLOGIC: no focal neurologic deficits PSYCH: appropriate, normal affect, pleasant and respectful This note was generated with Play4test dictation software. It may contain incorrect words, spelling, and punctuation that were not noted in checking the note before signing. Patient Problems: Active and Suspected Problems Alcohol withdrawal (Acute) - Physical Exam Vital Signs Temp Pulse Resp BP Pulse Ox 97.6 F L 87 18 151/108 H 99 10/09/18 14:00 10/09/18 14:00 10/09/18 14:00 10/09/18 14:00 10/09/18 05:38 Oxygen Delivery Method Room Air Weight: 207 lb 3.752 oz Body Mass Index (BMI) 30.6 Intake and Output for Last 24 Hours 10/07/18 10/08/18 10/09/18 23:59 23:59 23:59 Intake Total 1394 / 1394 5459 / 5459 1989 Output Total 1450 / 1450 Balance 1394 / 1394 4009 / 4009 1989 Discharge Activity: Return to Normal Activity Call your doctor if you observe: Fever of 101 or Higher, Shortness of breath, Dizziness, Fainting spells, Swelling in the ankles, Chest pain, Calf discomfort Home Medications: Medications to take at Discharge Folic Acid 1 mg PO DAILYCM tablet 10/09/18 Lisinopril [Zestril] 20 mg PO DAILY tablet 10/09/18 Metoprolol(XL)Succ [Toprol Xl (Beta Daron)] 50 mg PO DAILY #1 tablet 10/09/18 Multivitamins,Therapeutic [Multivitamin] 1 tablet PO DAILYCM tablet 10/09/18 Thiamine Hydrochloride [Vitamin B1] 100 mg PO DAILYCM tablet 10/09/18 Following Prescrptions Were Given to Patient: Metoprolol(XL)Succ [Toprol Xl (Beta Daron)] 50 mg PO DAILY #1 tablet Primary Care Physician: Care Physician,No Primary [Primary Care Provider] - Disposition: [facility] for ETOH dependence Minutes spent on discharge:: 35 Patient Condition:: Good Medical Necessity - Tobacco Use Smoking Status: Current every day smoker Tobacco Use: Cigarettes Meaningful Use Info Meaningful Use Diagnoses (Choose all that apply): None applicable Code Visit Inpatient E&M: 16968 Disch Hosp
--- NOTE | 2018-10-09 15:58 | NURSING ---
REQUESTED PAPERWORK FAXED TO [facility] AT [phone].
--- NOTE | 2018-10-09 17:55 | NURSING ---
PT DID NOT GO TO [facility] BECAUSE HE WAS TOLD INSURANCE WOULD NOT COVER. [facility] WAS ALREADY HERE TO TRANSPORT PT. PAZ Marquez/MERARI MADRID CALLED TO SAY PT WOULD GO TO [facility] UNTIL SHE CALLS HIM ON THURSDAY TO HELP PLACE HIM. PT WAS RUSHED DOWN TO CATCH HIS TRANSPORTATION WHO HAD ALREADY BEEN WAITING OVER 10 MINUTES. PT LEFT WITHOUT ANY PRESCRIPTIONS SINCE HE WAS ORIGINALLY GOING TO INPATIENT UNIT. CONTACTED HIM VIA TRANSPORT SERVICE AND WAS TOLD PT DID NOT WANT TO TURN AROUND TO GET PRESCRIPTIONS. COMMUNICATION SENT TO DR BANKS.
== END 2018-10-09 17:10 | disposition home or self-care (01) | DRG 775 ==
LOC: ED 15:20 → MS2 17:45
PROVIDERS: Emergency Provider Emergency Medicine; Visit Provider Internal Medicine
DX: F10.230 Alcohol dependence with withdrawal, uncomplicated (principal); E86.0 Dehydration; N19 Unspecified kidney failure; R94.5 Abnormal results of liver function studies; I10 Essential (primary) hypertension; F17.210 Nicotine dependence, cigarettes, uncomplicated; Z81.1 Family history of alcohol abuse and dependence; S01.81XD Laceration without foreign body of other part of head, subsequent encounter; W19.XXXD Unspecified fall, subsequent encounter; D69.6 Thrombocytopenia, unspecified
CPT/HCPCS: 36415; 70450; 76770; 80048; 80053; 80061; 80307; 82140; 83036; 83735; 84100; 84443; 85025; 85027; 96360; 96361; 99218; 99283; 99406; J7120; A4216; G0378